=== PATIENT | female | born 1985 | race Caucasian/White ===

== ENCOUNTER 2017-05-16 20:39 | Emergency (ER) | payer BC ==
[2017-05-16 21:03] VITALS: BP 100/57; PULSE 88; TEMP 98.4; BMI 20.1
--- NOTE | 2017-05-16 21:53 | PDOC ---
History of Present Illness - General Chief Complaint: Pain Stated Complaint: STOMACH PAIN Time Seen by Provider: 05/16/17 21:35 - History of Present Illness Initial Comments: 05/16/17 21:56 The patient is a 32 yo f w/ PMH recurrent abdominal pain comes into the ED c/o nausea, vomiting, diarrhea and abdominal pain for the past 1 week. The patient recently returned from the [facility] 1 week ago. Patient states that the ssx started in the [place] with watery stools and the onset of crampy abdominal pain. Patient states that the pain became progressively worse and became associated with nausea and NBNB vomiting one time which prompted the patient to present for evaluation. Pain varies from 2-7/10 in intensity is worse with food and has no alleviating factors. She states that this abdominal pain is distinctly different than her other abdominal pain episodes. Patient also is complaining of headaches and dizziness for the past 1 day. Patient has a child at home who is complaining of similar symptoms for a similar duration. Patient's child accompanied her to the [facility]. Patient denies hematemesis, hematochezia, melena, dysuria or urinary frequency. Past History - Travel Traveled outside of the country in the last 30 days: Yes If so, where?: [facility] - Past Medical History Allergies/Adverse Reactions: Allergies Allergy/AdvReac Type Severity Reaction Status Date / Time No Known Allergies Allergy Verified 08/24/15 11:05 Home Medications: Ambulatory Orders Ciprofloxacin [Cipro -] 500 mg PO BID #6 tablet 05/16/17 Ranitidine HCl [Zantac] 150 mg PO DAILY #30 tablet 05/16/17 Anemia: No Asthma: No Cancer: No Cardiac Disorders: No CVA: No COPD: No CHF: No Dementia: No Diabetes: No GI Disorders: Yes (gastroparesis) Disorders: No HTN: No Hypercholesterolemia: No Liver Disease: No Seizures: No Thyroid Disease: No - Surgical History Abdominal Surgery: Yes (laparoscopy for endometriosis) Appendectomy: No Cardiac Surgery: No Cholecystectomy: No Lung Surgery: No Neurologic Surgery: No Orthopedic Surgery: No - Immunization History Immunization Up to Date: Yes - Suicide/Smoking/Psychosocial Hx Smoking Status: No Smoking History: Never smoked Have you smoked in the past 12 months: No Number of Cigarettes Smoked Daily: 0 Hx Alcohol Use: No Drug/Substance Use Hx: No Substance Use Type: None Review of Systems - Review of Systems Able to Perform ROS?: Yes Is the patient limited Occitan proficient: No Constitutional: No: Chills, Diaphoresis, Fever Respiratory: No: Cough, Shortness of Breath Cardiac (ROS): No: Chest Pain ABD/GI: Yes: Diarrhea, Nausea, Vomiting, Abdominal cramping. No: Abdominal Distended, Blood Streaked Bowels, Poor Appetite, Rectal Bleeding : No: Burning, Dysuria, Frequency Neurological: Yes: Headache *Physical Exam - Vital Signs Last Vital Signs Temp Pulse Resp BP Pulse Ox 98.4 F 88 20 100/57 99 05/16/17 20:59 05/16/17 20:59 05/16/17 20:59 05/16/17 20:59 05/16/17 20:59 - Physical Exam General Appearance: Yes: Appropriately Dressed. No: Apparent Distress Respiratory/Chest: positive: Lungs Clear, Normal Breath Sounds. negative: Respiratory Distress, Accessory Muscle Use Cardiovascular: positive: Regular Rhythm, Regular Rate, S1, S2. negative: Edema , JVD, Murmur, Gallop/S3, Gallop/S4 Gastrointestinal/Abdominal: positive: Normal Bowel Sounds, Flat, Soft, Other ( robb sign negative. No CVA tenderness). negative: Tender, Organomegaly ED Treatment Course - LABORATORY CBC & Chemistry Diagram: 05/16/17 22:21 05/16/17 22:21 Medical Decision Making - Medical Decision Making 05/16/17 22:22 The patient is a 32 yo f w/ PMH recurrent abdominal pn comes in complaining of a 1 week hx of Nausea, vomiting, abdominal pain and diarrhea after returning from the [facility]. Patient is most likely suffering from a gastroenteritis either from a bacterial or viral cause. Must r/o hepatitis A as well. -CBC, CMP -Lipase -1L NS bolus -Zofran -mylanta -zantac 150mg -if labs return negative, can most likely d/c home with cipro 500 BID x 3 days -will reassess. 05/16/17 23:18 -patient's CBC and CMP WNL 05/16/17 23:30 -Patient feels better after treatment; she is most likely experiencing a viral or bacterial gastroenteritis. Will D/C her home with Cipro 500 BID x 3 days and Zantac 150. 05/17/17 00:47 -serum quant negative. Will D/c Home. *DC/Admit/Observation/Transfer Diagnosis at time of Disposition: Gastroenteritis - Discharge Dispostion Disposition: HOME Condition at time of disposition: Improved Admit: No - Prescriptions Prescriptions: Ciprofloxacin [Cipro -] 500 mg PO BID #6 tablet Ranitidine HCl [Zantac] 150 mg PO DAILY #30 tablet - Referrals Referrals: Blaze Coburn MD [Primary Care Provider] - - Patient Instructions Printed Discharge Instructions: DI for Bacterial Gastroenteritis -- Adult, DI for Viral Gastroenteritis -- Child Additional Instructions: We are sending you home with two medications. The first medication is an antibiotic called Ciprofloxacin. You should take this medication twice per day for 3 days. Please take all of your medication for the full stack java developer prescribed, even of you feel better. We are also sending you home with another medication called Zantac. You should take this medication once per day as needed for heartburn. Please follow up with your primary care physician. If you begin to experience worsening abdominal pain, fever, chills, if your symptoms do not get better or if any of your symptoms get worse, please call your doctor or return to the ED.
[2017-05-16] MEDS ORDERED: RANITIDINE HCL 150 MG TABLET (FP) PO ONE (21:54)
[2017-05-16] MEDS ORDERED: ONDANSETRON 4 MG TABLET PO ONE (21:55)
[2017-05-16] MEDS ORDERED: MAG HYDROX/AL HYDROX/SIMETH 355 ML ORAL.SUSP PO ONE (21:55)
[2017-05-16] MEDS ORDERED: SODIUM CHLORIDE 1,000 ML IV STA (21:56)
[2017-05-16] MEDS ORDERED: RANITIDINE HCL 150 MG TABLET (FP) ONE (22:09)
[2017-05-16] MEDS ORDERED: ONDANSETRON 4 MG/2 ML VIAL ONE (22:09)
[2017-05-16] MEDS ORDERED: MAG HYDROX/AL HYDROX/SIMETH 30 ML UNIT-DOSE CUP ONE (22:09)
[2017-05-16 22:26] LABS: MCH 29.8 pg (25.7-33.7); MCHC 34.4 g/dl (32.0-36.0); MEAN CELL VOLUME 86.5 fl (80-96); MEAN PLT VOLUME 7.7 fl (7.5-11.1); PLATELET COUNT 214 K/MM3 (134-434); WHITE BLOOD COUNT 8.3 K/mm3 (4.0-10.0)
[2017-05-16 22:57] LABS: ALBUMIN 3.9 g/dl (3.4-5.0); ALK PHOS 52 U/L (45-117); ANION GAP 6 (8-16); BILIRUBIN,TOTAL 0.4 mg/dL (0.2-1.0); CALCIUM 8.6 mg/dL (8.5-10.1); CO2 31 mmol/L (21-32); CREATININE 0.7 mg/dL (0.55-1.02); GLUCOSE,RANDOM 93 mg/dL (74-106); SGOT/AST 11 U/L (15-37); SGPT/ALT 19 U/L (12-78); TOT PROT 6.7 g/dl (6.4-8.2)
--- NOTE | 2017-05-16 22:57 | PDOC ---
Attending Attestation - Resident Resident Name: Chon Cleveland - ED Attending Attestation I have performed the following: I have examined & evaluated the patient, The case was reviewed & discussed with the resident, I agree w/resident's findings & plan, Exceptions are as noted - HPI HPI: 05/16/17 22:57 32-year-old female with past medical history of endometriosis presents with nausea, vomiting and epigastric discomfort. The patient had an episode of loose stooling when she recently returned from vacation at the [facility]. Reports sick contacts with her son and father. No fevers but reports some nausea and some vomiting. Denies bad foods. - Physicial Exam PE: 05/16/17 22:59 GENERAL: Awake, alert, and fully oriented, in no acute distress. HEAD: No signs of trauma EYES: PERRLA, EOMI, sclera anicteric, conjunctiva clear ENT: Auricles normal inspection, hearing grossly normal, nares patent, oropharynx clear without exudates. NECK: Normal ROM, supple. LUNGS: Breath sounds equal, clear to auscultation bilaterally. No wheezes, and no crackles HEART: Regular rate and rhythm, normal S1 and S2, no murmurs, rubs or gallops ABDOMEN: Soft. No guarding, no rebound. No masses. TTP epigastric. Quiñonez sign negative. EXTREMITIES: Normal range of motion, no edema. No clubbing or cyanosis. No cords, erythema, or tenderness NEUROLOGICAL: Cranial nerves II through XII grossly intact. Normal speech, normal gait SKIN: Warm, Dry, normal turgor, no rashes or lesions noted. - Medical Decision Making 05/16/17 22:59 Vital Signs Temp Pulse Resp BP Pulse Ox 98.4 F 88 20 100/57 99 05/16/17 20:59 05/16/17 20:59 05/16/17 20:59 05/16/17 20:59 05/16/17 20:59 32 year old F p/w likely viral gastroenteritis vs. traveller's diarrhea. Will workup with blood work. If workup is unconcerning, will discharge with cipro for traveller's diarrhea 05/16/17 23:33 CBC, BMP 05/16/17 22:21 05/16/17 22:21 CMP Sodium 142 mmol/L (136-145) 05/16/17 22:21 Potassium 3.7 mmol/L (3.5-5.1) 05/16/17 22:21 Chloride 105 mmol/L (98-107) 05/16/17 22:21 Carbon Dioxide 31 mmol/L (21-32) 05/16/17 22:21 Anion Gap 6 (8-16) L 05/16/17 22:21 BUN 9 mg/dL (7-18) D 05/16/17 22:21 Creatinine 0.7 mg/dL (0.55-1.02) D 05/16/17 22:21 Creat Clearance w eGFR > 60 (>60) 05/16/17 22:21 Random Glucose 93 mg/dL (74-106) 05/16/17 22:21 Calcium 8.6 mg/dL (8.5-10.1) 05/16/17 22:21 Total Bilirubin 0.4 mg/dL (0.2-1.0) D 05/16/17 22:21 AST 11 U/L (15-37) L D 05/16/17 22:21 ALT 19 U/L (12-78) D 05/16/17 22:21 Alkaline Phosphatase 52 U/L (45-117) D 05/16/17 22:21 Total Protein 6.7 g/dl (6.4-8.2) 05/16/17 22:21 Albumin 3.9 g/dl (3.4-5.0) 05/16/17 22:21 Lipase 105 U/L (73-393) 05/16/17 22:21 Pt reports feeling much better. 05/16/17 23:34 If test negative, pt can be discharged.
[2017-05-17] MEDS ORDERED: RANITIDINE HCL 150 MG TABLET (FP) PO ONE (00:54)
[2017-05-17] MEDS ORDERED: ONDANSETRON 4 MG TABLET PO ONE (00:58)
[2017-05-17] MEDS ORDERED: ONDANSETRON *ODT* 4 MG TABLET ONE (01:12)
== END 2017-05-17 01:22 | disposition home or self-care (01) ==
LOC: JER 20:39
PROC: 3E0337Z Introduction of Electrolytic and Water Balance Substance into Peripheral Vein, Percutaneous Approach (ICD-10-PCS; principal; 2017-05-16)
DX: K52.9 Noninfective gastroenteritis and colitis, unspecified (principal)
CPT/HCPCS: 36415; 80053; 83690; 84703; 85027; 99281-25